=== PATIENT | male | born 1975 | race Caucasian/White ===

== ENCOUNTER 2016-11-14 01:22 | Emergency (ER) | payer MEDICAID ==
[~2016-11-14] VITALS: Ht 180.3 cm; Wt 104.3 kg
[2016-11-14 01:30] VITALS: BP_SYST 153
--- NOTE | 2016-11-14 01:40 | NUR ---
Patient to ER bed 2 to gown for evaluation. Side rails up. Report given to Herbie BALTAZAR.
[2016-11-14] MEDS ORDERED: LevALBUTEROL HCL 1.25 MG/0.5 ML *CONC.* VIAL.NEB (XOPENEX CONC.) INH ONE ×2 (01:45→02:30)
[2016-11-14] MEDS ORDERED: IPRATROPIUM BROM 0.5 MG/2.5 ML VIAL.NEB (ATROVENT) IH ONE (01:45)
--- NOTE | 2016-11-14 01:50 | NUR ---
ER Dr. Kate at bedside examining patient.
--- NOTE | 2016-11-14 01:50 | NUR ---
Pt states that he had SOB since 010 and ran out of his asthma medication. Lung sounds bilateral wheeze. AAOX4. Will continue to monitor. No other injuries or complaints mentioned/noted. No distress noted.
[2016-11-14] MEDS ORDERED: PREDNISONE 20 MG TABLET PO ONE (02:30)
--- NOTE | 2016-11-14 02:43 | NUR ---
BREATHING TREATMENT DONE, PT CLAIMED IMPROVED BREATHING
--- NOTE | 2016-11-14 02:53 | NUR ---
Note kenroyone in EDM - 11/14/16 at 0352 by HI Pt states that he had SOB since 99 and ran out of his asthma medication. Lung sounds bilateral wheeze. AAOX4. Will continue to monitor. No other injuries or complaints mentioned/noted. No distress noted.
--- NOTE | 2016-11-14 02:53 | NUR ---
Kanika casiano in ED - 11/14/16 at 0353 by HI REYNA Kate at bedside examining patient.
[2016-11-14 02:55] VITALS: BP_SYST 143
--- NOTE | 2016-11-14 02:55 | NUR ---
Patient given written and verbal discharge instructions and verbalizes understanding. ER MD discussed with patient the results and treatment provided. Patient in stable condition. ID arm band removed. Rx of Albuterol and prednisone given. Patient educated on pain management and to follow up with PMD. Pain Scale 0/10. Opportunity for questions provided and answered.
== END 2016-11-14 02:55 | disposition home or self-care (01) ==
LOC: SED 01:22
DX: J45.901 Unspecified asthma with (acute) exacerbation (principal)
CPT/HCPCS: 94640; 99284; J7512